=== PATIENT | female | born 1955 | race Hispanic/Latino ===

== ENCOUNTER 2017-06-04 15:48 | Outpatient (CLI) | payer OTHER ==
--- NOTE | 2017-06-05 13:45 | Mammography Report ---
BILATERAL DIGITAL SCREENING MAMMOGRAM with CAD : 06/04/17 15:48:00 CLINICAL: Routine screening. COMPARISON:05/09/16 FINDINGS: The breasts are heterogeneously dense, which may obscure small masses.Stable 1 cm heavily calcified left inner mass. No new mass, architectural distortion or suspicious calcifications. IMPRESSION: No mammographic evidence of malignancy. BI-RADS CATEGORY: 2 -- Benign RECOMMENDATION: Routine mammographic screening in one year. COMMENT: Patient follow-up letters are generated by our [employer] application.
== END 2017-06-04 15:49 | disposition home or self-care (01) ==
LOC: SPVWC 15:48
PROVIDERS: ATTEND Family Medicine
DX: Z12.31 Encounter for screening mammogram for malignant neoplasm of breast (principal)
CPT/HCPCS: 77067; G0202